=== PATIENT | male | born 1935 | race Caucasian/White ===

== ENCOUNTER 2019-11-13 08:19 | Observation (INO) ==
[2019-11-13] MEDS ORDERED: Aspirin 81 MG TAB.CHEW PO ONE (08:24)
[2019-11-13 08:51] LABS: Basophils % 0.3 %; Hematocrit 41.2 % (37.5-50.1); Hemoglobin 14.4 g/dL (12.9-16.9); Immature Granulocytes % 0.4 % (0-4); Lymphocytes # 0.5 K/mcL (0.6-4.6); Lymphocytes % 4.8 %; Mean Corpuscular Volume 88.6 fL (83.0-100.0); Mean Platelet Volume 10.1 fL (9.4-12.4); Monocytes # 1.1 K/mcL (0.0-1.3); Monocytes % 10.4 %; Neutrophils # 8.6 K/mcL (1.6-8.9); Platelet Count 141 K/mcL (140-400); Red Blood Count 4.65 M/mcL (4.19-5.50); Red Cell Distribution Width 11.9 % (11.5-14.5); Segmented Neutrophils % 84.1 %; White Blood Count 10.2 K/mcL (4.3-11.1)
[2019-11-13 08:56] LABS: INR 1.1
[2019-11-13 08:59] LABS: Activated Partial Thrombo Time 28.6 Seconds (26.0-36.0)
[2019-11-13] MEDS ORDERED: *HR* Heparin 5,000 UNIT/ML VIAL IVP PRN ×2 (09:04)
[2019-11-13] MEDS ORDERED: *HR* Heparin 5,000 UNIT/ML VIAL IVP ONE (09:04)
[2019-11-13 09:09] LABS: Albumin 4.2 g/dL (3.5-5.7); Albumin/Globulin Ratio 1.8 (1.1-2.2); Bilirubin,Direct 0.2 mg/dL (0.0-0.2); Bilirubin,Indirect 0.8 mg/dL (0.0-1.0); D-Dimer 315 ng/mLFEU (0-500); Globulin 2.3 g/dL (2.4-3.5); Total Protein 6.5 g/dL (6.4-8.9)
[2019-11-13 09:10] LABS: BUN/Creatinine Ratio 23 (6-26); Blood Urea Nitrogen 24 mg/dL (8-23); Calcium 9.3 mg/dL (8.6-10.3); Carbon Dioxide 28 mEq/L (23-29); Chloride 100 mEq/L (98-107); Glucose 107 mg/dL (70-105); Osmolality,Calculated 285 (280-300); Potassium 3.6 mEq/L (3.5-5.1); Sodium 135 mEq/L (136-145); eGFR For African Americans > 60 (> 60); eGFR For Non-African Americans > 60 (> 60)
[2019-11-13 09:11] LABS: Troponin I < 0.03 ng/mL (< 0.04)
[2019-11-13] MEDS ORDERED: Heparin 25,000 UNIT/250 ML D5W 25,000 UNIT/250 ML IV.SOLN IVC SCH (09:15)
[2019-11-13 09:17] LABS: Heparin anti-factor XA UFH < 0.04 IU/mL (0.30-0.70)
[2019-11-13] MEDS ORDERED: Ondansetron 4 MG/2 ML VIAL IVP PRN (10:25)
[2019-11-13] MEDS ORDERED: *HR* LORazepam 1 MG TABLET PO PRN (10:27)
[2019-11-13 11:11] LABS: Magnesium 1.8 mg/dL (1.6-2.6)
[2019-11-13 11:12] LABS: Troponin I < 0.03 ng/mL (< 0.04)
[2019-11-13] MEDS: Nitroglycerin 0.4 MG TAB.SUBL SL PRN ×2 (17:00→17:19)
[2019-11-13] MEDS: Potassium Chloride Elixir 20 MEQ/15 ML UDC PO SCH (20:33)
[2019-11-14 01:24] LABS: Basophils % 0.3 %; Red Cell Distribution Width 11.8 % (11.5-14.5)
[2019-11-14 01:25] LABS: Hematocrit 39.8 % (37.5-50.1); Immature Granulocytes % 0.2 % (0-4); Immature Platelets 3.3 % (1.1-6.1); Lymphocytes # 1.1 K/mcL (0.6-4.6); Lymphocytes % 11.2 %; Mean Corpuscular HGB Conc 35.2 g/dL (31.6-35.5); Mean Corpuscular Hemoglobin 31.7 pg (28.0-33.3); Mean Corpuscular Volume 90.2 fL (83.0-100.0); Mean Platelet Volume 10.1 fL (9.4-12.4); Monocytes # 1.2 K/mcL (0.0-1.3); Monocytes % 12.4 %; Neutrophils # 7.5 K/mcL (1.6-8.9); Platelet Count 141 K/mcL (140-400); Red Blood Count 4.41 M/mcL (4.19-5.50); Segmented Neutrophils % 75.9 %; White Blood Count 9.9 K/mcL (4.3-11.1)
[2019-11-14 01:27] LABS: INR 1.3; Prothrombin Time 14.2 Seconds (9.4-12.1)
[2019-11-14 01:41] LABS: Platelet Estimate Normal (Normal)
[2019-11-14 01:47] LABS: Alanine Aminotransferase 12 Units/L (7-52); Albumin 3.8 g/dL (3.5-5.7); Albumin/Globulin Ratio 1.5 (1.1-2.2); Alkaline Phosphatase 47 Units/L (34-104); Aspartate Amino Transferase 18 Units/L (13-39); BUN/Creatinine Ratio 23 (6-26); Bilirubin,Total 1.1 mg/dL (0.3-1.0); Blood Urea Nitrogen 25 mg/dL (8-23); Carbon Dioxide 28 mEq/L (23-29); Chloride 98 mEq/L (98-107); Globulin 2.5 g/dL (2.4-3.5); Glucose 108 mg/dL (70-105); Magnesium 1.8 mg/dL (1.6-2.6); Osmolality,Calculated 281 (280-300); Potassium 3.9 mEq/L (3.5-5.1); Sodium 133 mEq/L (136-145); Total Protein 6.3 g/dL (6.4-8.9); eGFR For African Americans > 60 (> 60); eGFR For Non-African Americans > 60 (> 60)
[2019-11-14] MEDS ORDERED: Regadenoson 0.4 MG/5 ML SYRINGE IVP ONE (08:21)
[2019-11-14] MEDS ORDERED: Aspirin 81 MG TAB.CHEW PO SCH (09:00)
[2019-11-14] MEDS ORDERED: atenoloL 50 MG TABLET PO SCH (09:00)
[2019-11-14] MEDS ORDERED: Isosorbide MONOnitrate (24 HR) 30 MG TAB.ER.24H PO SCH (09:00)
[2019-11-14] MEDS ORDERED: Magnesium Oxide 400 MG TABLET PO SCH (09:00)
[2019-11-14] MEDS ORDERED: Heparin 1,000 UNITS/500 mL 500 ML ONE (12:02)
[2019-11-14] MEDS ORDERED: Nitroglycerin 1,000 MCG/10 ML VIAL IV ONE (12:02)
[2019-11-14] MEDS ORDERED: *HR* Heparin 10,000 UNIT/10 ML VIAL ONE (12:02)
[2019-11-14] MEDS ORDERED: 0.9 % Sodium Chloride 1,000 ML ONE (12:02)
[2019-11-14] MEDS ORDERED: ISOVUE-370 200 ML INFUS..BTL ONE (12:02)
[2019-11-14] MEDS ORDERED: *HR* Midazolam HCl 2 MG/2 ML VIAL ONE (12:29)
[2019-11-14] MEDS ORDERED: *HR* FentaNYL (PF) 100 MCG/2 ML VIAL ONE (12:39)
[2019-11-14] MEDS ORDERED: Acetaminophen 325 MG TABLET PO PRN (13:18)
[2019-11-14] MEDS: Potassium Chloride Elixir 20 MEQ/15 ML UDC PO SCH (14:08)
[2019-11-14 15:38] VITALS: BP 139/76
[2019-11-15] MEDS ORDERED: Isosorbide MONOnitrate (24 HR) 60 MG TAB.ER.24H PO SCH (09:00)
== END 2019-11-14 16:14 | disposition home or self-care (01) ==
LOC: EMEROOARM 08:19 → 2ANU 08:19 → SUATTDRO 10:00 → 2ANU 10:18
PROVIDERS: ADMIT Family Medicine; ATTEND Student in an Organized Health Care Education/Training Program

== ENCOUNTER 2022-02-10 10:43 | Inpatient (IN) ==
[2022-02-10 12:18] LABS: Mean Platelet Volume 10.5 fL (9.4-12.4); Red Cell Distribution Width 12.3 % (11.5-14.5)
[2022-02-10 12:20] LABS: Basophils # 0.1 K/mcL (0.0-0.2); Basophils % 0.7 %; Eosinophils % 0.1 %; Hematocrit 42.2 % (37.5-50.1); Hemoglobin 14.3 g/dL (12.9-16.9); Immature Granulocytes % 0.3 % (0-4); Immature Platelets 5.2 % (1.1-6.1); Lymphocytes # 0.9 K/mcL (0.6-4.6); Lymphocytes % 12.9 %; Mean Corpuscular HGB Conc 33.9 g/dL (31.6-35.5); Mean Corpuscular Hemoglobin 30.7 pg (28.0-33.3); Mean Corpuscular Volume 90.6 fL (83.0-100.0); Monocytes # 0.8 K/mcL (0.0-1.3); Monocytes % 12.2 %; Platelet Count 145 K/mcL (140-400); Red Blood Count 4.66 M/mcL (4.19-5.50); Segmented Neutrophils % 73.8 %; White Blood Count 6.8 K/mcL (4.3-11.1)
[2022-02-10 12:25] LABS: INR 1.1; Prothrombin Time 12.6 Seconds (9.4-12.1)
[2022-02-10 12:28] LABS: Activated Partial Thrombo Time 29.2 Seconds (26.0-36.0)
[2022-02-10 12:40] LABS: BUN/Creatinine Ratio 22 (6-26); Blood Urea Nitrogen 24 mg/dL (8-23); Calcium 9.3 mg/dL (8.6-10.3); Carbon Dioxide 31 mEq/L (23-29); Chloride 103 mEq/L (98-107); Glucose 107 mg/dL (70-105); Osmolality,Calculated 291 (280-300); Potassium 3.8 mEq/L (3.5-5.1); Sodium 138 mEq/L (136-145); Troponin I < 0.03 ng/mL (< 0.04); eGFR For African Americans > 60 (> 60); eGFR For Non-African Americans > 60 (> 60)
[2022-02-10] MEDS ORDERED: Naloxone 0.4 MG/ML INJ IVP PRN (16:40)
[2022-02-10] MEDS ORDERED: Perflutren Lipid Microsphere 1.3 ML in 0.9 % Sodium Chloride 8.7 ML IVP PRN (17:10)
[2022-02-10] MEDS: *HR* LORazepam 1 MG TABLET PO PRN (21:40)
[2022-02-11] MEDS ORDERED: *HR* Heparin 5,000 UNIT/ML VIAL SQ SCH (06:00)
[2022-02-11] MEDS ORDERED: Regadenoson 0.4 MG/5 ML SYRINGE IVP ONE (06:14)
[2022-02-11] MEDS ORDERED: Isosorbide MONOnitrate (24 HR) 60 MG TAB.ER.24H PO SCH (09:00)
[2022-02-11 11:19] LABS: Hemoglobin 14.1 g/dL (12.9-16.9); Immature Granulocytes % 0.2 % (0-4); Lymphocytes % 9.7 %
[2022-02-11 11:21] LABS: Basophils % 0.4 %; Eosinophils % 0.1 %; Immature Platelets 4.5 % (1.1-6.1); Lymphocytes # 0.9 K/mcL (0.6-4.6); Mean Corpuscular HGB Conc 34.4 g/dL (31.6-35.5); Mean Corpuscular Hemoglobin 30.7 pg (28.0-33.3); Mean Corpuscular Volume 89.3 fL (83.0-100.0); Mean Platelet Volume 10.6 fL (9.4-12.4); Monocytes # 0.7 K/mcL (0.0-1.3); Monocytes % 7.4 %; Neutrophils # 7.3 K/mcL (1.6-8.9); Platelet Count 129 K/mcL (140-400); Red Blood Count 4.59 M/mcL (4.19-5.50); Red Cell Distribution Width 12.2 % (11.5-14.5); Segmented Neutrophils % 82.2 %; White Blood Count 8.9 K/mcL (4.3-11.1)
[2022-02-11 11:37] LABS: Blood Urea Nitrogen 20 mg/dL (8-23); Calcium 8.8 mg/dL (8.6-10.3); Carbon Dioxide 28 mEq/L (23-29); Chloride 103 mEq/L (98-107); Chol/HDL Ratio 2.7 (0-4.9); Cholesterol 126 mg/dL (< 200); Glucose 102 mg/dL (70-105); HDL Cholesterol 46 mg/dL (40-59); LDL Cholesterol,Calculated 64 mg/dL (< 100); Osmolality,Calculated 285 (280-300); Potassium 3.8 mEq/L (3.5-5.1); Sodium 136 mEq/L (136-145); Triglycerides 82 mg/dL (< 150)
[2022-02-11 12:26] LABS: BUN/Creatinine Ratio 18 (6-26); eGFR For African Americans > 60 (> 60); eGFR For Non-African Americans > 60 (> 60)
[2022-02-11 12:28] LABS: Estimated Average Glucose 114 mg/dl; Hemoglobin A1C 5.6 %
[2022-02-11] MEDS: Aspirin Enteric Coated 81 MG Tablet PO SCH (15:27)
[2022-02-11] MEDS: Nitroglycerin 0.4 MG TAB.SUBL SL PRN ×3 (15:46→15:56)
[2022-02-11] MEDS ORDERED: *HR* Heparin 5,000 UNIT/ML VIAL IVP PRN ×2 (16:40)
[2022-02-11] MEDS ORDERED: Heparin 25,000UNIT/250ML 1/2NS 25,000 UNIT/250 ML IV.SOLN IVC SCH (16:45)
[2022-02-11] MEDS: Metoprolol XL (24 HR) Succ 25 MG TAB.ER.24H PO SCH (21:28)
[2022-02-11] MEDS: *HR* LORazepam 1 MG TABLET PO PRN (21:28)
[2022-02-12] MEDS: Metoprolol XL (24 HR) Succ 25 MG TAB.ER.24H PO SCH ×2 (08:55→19:58)
[2022-02-12] MEDS: Aspirin Enteric Coated 81 MG Tablet PO SCH (08:55)
[2022-02-12] MEDS ORDERED: Heparin 1,000 UNITS/500 mL 500 ML ONE (10:10)
[2022-02-12] MEDS ORDERED: Iopamidol - 370 200 ML INFUS..BTL ONE (10:10)
[2022-02-12] MEDS ORDERED: Nitroglycerin 1,000 MCG/5 ML VIAL IV ONE (10:10)
[2022-02-12] MEDS ORDERED: 0.9 % Sodium Chloride 1,000 ML ONE ×2 (10:10→10:16)
[2022-02-12] MEDS ORDERED: *HR* Heparin 10,000 UNIT/10 ML VIAL ONE (10:10)
[2022-02-12] MEDS ORDERED: *HR* FentaNYL (PF) 100 MCG/2 ML VIAL ONE (10:15)
[2022-02-12] MEDS ORDERED: *HR* Midazolam HCl 2 MG/2 ML VIAL ONE (10:16)
[2022-02-12] MEDS ORDERED: *HR* Atropine Sulfate 1 MG/10 ML SYRINGE ONE (11:02)
[2022-02-12] MEDS ORDERED: Methyl Salicylate/Menthol 85 APPL/85 GM TUBE TP PRN (15:47)
[2022-02-12] MEDS: *HR* Heparin 5,000 UNIT/ML VIAL SQ SCH (17:14)
[2022-02-12] MEDS: *HR* LORazepam 1 MG TABLET PO PRN (22:58)
[2022-02-13] MEDS: Ibuprofen 400 MG TABLET PO PRN ×2 (01:00→08:58)
[2022-02-13] MEDS ORDERED: Ketorolac 30 MG/ML VIAL IVP ONE (01:23)
[2022-02-13 03:51] LABS: Hematocrit 37.9 % (37.5-50.1); Hemoglobin 13.1 g/dL (12.9-16.9)
[2022-02-13 04:16] LABS: BUN/Creatinine Ratio 17 (6-26); Blood Urea Nitrogen 19 mg/dL (8-23); Troponin I 0.05 ng/mL (< 0.04); eGFR For African Americans > 60 (> 60); eGFR For Non-African Americans > 60 (> 60)
[2022-02-13 07:08] VITALS: BP 108/51; PULSE 72; TEMP 97.7; O2SAT 100
[2022-02-13] MEDS: *HR* Heparin 5,000 UNIT/ML VIAL SQ SCH (08:49)
[2022-02-13] MEDS: Aspirin Enteric Coated 81 MG Tablet PO SCH (08:58)
[2022-02-13] MEDS: Metoprolol XL (24 HR) Succ 25 MG TAB.ER.24H PO SCH (08:59)
== END 2022-02-13 11:00 | disposition home or self-care (01) | DRG 247 ==
LOC: 2NENU 10:43 → EMEROOARM 10:43 → SUATTDRO 15:16 → 2NENU 16:35 → SUATTDRO 02-12 13:15
PROVIDERS: ADMIT Internal Medicine; ATTEND Internal Medicine

== ENCOUNTER 2022-03-03 16:47 | Observation (INO) ==
[2022-03-03 17:55] LABS: BUN/Creatinine Ratio 15 (6-26); Blood Urea Nitrogen 15 mg/dL (8-23); Calcium 9.1 mg/dL (8.6-10.3); Carbon Dioxide 30 mEq/L (23-29); Chloride 99 mEq/L (98-107); Glucose 104 mg/dL (70-105); Osmolality,Calculated 283 (280-300); Potassium 3.9 mEq/L (3.5-5.1); Sodium 136 mEq/L (136-145); Troponin I < 0.03 ng/mL (< 0.04); eGFR For African Americans > 60 (> 60); eGFR For Non-African Americans > 60 (> 60)
[2022-03-03 17:58] LABS: Basophils # 0.1 K/mcL (0.0-0.2); Basophils % 0.8 %; Hemoglobin 12.8 g/dL (12.9-16.9); Immature Granulocytes % 0.2 % (0-4); Lymphocytes # 0.8 K/mcL (0.6-4.6); Lymphocytes % 12.6 %; Mean Corpuscular HGB Conc 34.6 g/dL (31.6-35.5); Mean Corpuscular Hemoglobin 30.9 pg (28.0-33.3); Mean Corpuscular Volume 89.4 fL (83.0-100.0); Mean Platelet Volume 10.7 fL (9.4-12.4); Monocytes # 0.8 K/mcL (0.0-1.3); Monocytes % 12.1 %; Neutrophils # 4.7 K/mcL (1.6-8.9); Platelet Count 146 K/mcL (140-400); Red Blood Count 4.14 M/mcL (4.19-5.50); Red Cell Distribution Width 12.4 % (11.5-14.5); Segmented Neutrophils % 74.3 %; White Blood Count 6.3 K/mcL (4.3-11.1)
[2022-03-03 18:43] LABS: Magnesium 1.8 mg/dL (1.6-2.6)
[2022-03-03] MEDS ORDERED: Acetaminophen 325 MG TABLET PO PRN (23:08)
[2022-03-03] MEDS ORDERED: Naloxone 0.4 MG/ML INJ IVP PRN (23:08)
[2022-03-03] MEDS ORDERED: Ondansetron 4 MG/2 ML VIAL IVP PRN (23:08)
[2022-03-04] MEDS: Famotidine 20 MG TABLET PO SCH ×3 (00:22→21:15)
[2022-03-04] MEDS: Sucralfate 1 GM TABLET PO SCH ×5 (00:22→21:15)
[2022-03-04] MEDS: *HR* LORazepam 1 MG TABLET PO PRN ×2 (00:23→21:15)
[2022-03-04] MEDS: Metoprolol XL (24 HR) Succ 25 MG TAB.ER.24H PO SCH ×3 (00:23→21:15)
[2022-03-04 03:49] LABS: Hemoglobin 12.1 g/dL (12.9-16.9); Mean Platelet Volume 10.4 fL (9.4-12.4)
[2022-03-04 03:51] LABS: Hematocrit 34.8 % (37.5-50.1); Mean Corpuscular HGB Conc 34.8 g/dL (31.6-35.5); Mean Corpuscular Hemoglobin 30.7 pg (28.0-33.3); Mean Corpuscular Volume 88.3 fL (83.0-100.0); Red Blood Count 3.94 M/mcL (4.19-5.50); Red Cell Distribution Width 12.2 % (11.5-14.5); White Blood Count 6.2 K/mcL (4.3-11.1)
[2022-03-04 03:53] LABS: INR 1.2; Prothrombin Time 12.9 Seconds (9.4-12.1)
[2022-03-04 03:56] LABS: Activated Partial Thrombo Time 28.1 Seconds (26.0-36.0)
[2022-03-04 04:05] LABS: BUN/Creatinine Ratio 14 (6-26); Blood Urea Nitrogen 13 mg/dL (8-23); Calcium 8.8 mg/dL (8.6-10.3); Carbon Dioxide 30 mEq/L (23-29); Chloride 103 mEq/L (98-107); Chol/HDL Ratio 2.8 (0-4.9); Cholesterol 125 mg/dL (< 200); Glucose 99 mg/dL (70-105); HDL Cholesterol 45 mg/dL (40-59); LDL Cholesterol,Calculated 60 mg/dL (< 100); Osmolality,Calculated 284 (280-300); Potassium 3.5 mEq/L (3.5-5.1); Sodium 137 mEq/L (136-145); Triglycerides 102 mg/dL (< 150); eGFR For African Americans > 60 (> 60); eGFR For Non-African Americans > 60 (> 60)
[2022-03-04 04:17] LABS: Thyroid Stimulating Hormone 2.913 mcIU/mL (0.340-5.600)
[2022-03-04 04:30] LABS: Folate > 22.3 ng/mL (3.0-16.0); Vitamin B12 428 pg/mL (250-1100)
[2022-03-04 04:33] LABS: Estimated Average Glucose 120 mg/dl; Hemoglobin A1C 5.8 %
[2022-03-04] MEDS: *HR* Heparin 5,000 UNIT/ML VIAL SQ SCH ×2 (05:21→15:46)
[2022-03-04 08:55] LABS: Bilirubin,Urine Negative (Negative); Blood,Urine Negative (Negative); Clarity,Urine Clear (Clear); Color,Urine Light-Yellow (Yellow); Glucose,Urine (UA) Normal (Normal); Ketones,Urine Negative (Negative); Leukocyte Esterase,Urine Negative (Negative); Nitrite,Urine Negative (Negative); Protein,Urine Negative (Neg-Trace); Specific Gravity,Urine 1.013 (1.010-1.025); Urobilinogen,Urine Normal (Normal)
[2022-03-04] MEDS: Aspirin Enteric Coated 81 MG Tablet PO SCH (09:15)
[2022-03-04] MEDS: Magnesium Oxide 400 MG TABLET PO SCH (09:17)
[2022-03-04] MEDS: Isosorbide MONOnitrate (24 HR) 60 MG TAB.ER.24H PO SCH (09:17)
[2022-03-04] MEDS: Multivit/Ca/Min/Fe/FA 1 TAB TABLET PO SCH (09:17)
[2022-03-04] MEDS: Potassium Chloride Elixir 20 MEQ/15 ML UDC PO SCH ×2 (10:00→21:20)
[2022-03-04] MEDS ORDERED: Metoprolol XL (24 HR) Succ 25 MG TAB.ER.24H PO ONE (11:28)
[2022-03-04] MEDS: Menthol 1 EACH LOZENGE PO PRN ×2 (12:58→15:49)
[2022-03-04 17:09] LABS: Influenza A PCR Negative (Negative); Influenza B PCR Negative (Negative); Resp. Syncytial Virus PCR Negative (Negative)
[2022-03-04 17:10] LABS: SARS-CoV-2 by PCR (In House) Negative (Negative)
[2022-03-04] MEDS ORDERED: Chloraseptic Spray 177 ML BOTTLE MM PRN (20:12)
[2022-03-05 03:24] LABS: Hemoglobin 12.3 g/dL (12.9-16.9)
[2022-03-05 03:26] LABS: Hematocrit 35.3 % (37.5-50.1); Immature Platelets 5.9 % (1.1-6.1); Mean Corpuscular HGB Conc 34.8 g/dL (31.6-35.5); Mean Corpuscular Hemoglobin 30.9 pg (28.0-33.3); Mean Corpuscular Volume 88.7 fL (83.0-100.0); Mean Platelet Volume 10.9 fL (9.4-12.4); Red Blood Count 3.98 M/mcL (4.19-5.50); Red Cell Distribution Width 12.1 % (11.5-14.5)
[2022-03-05 03:48] LABS: BUN/Creatinine Ratio 17 (6-26); Blood Urea Nitrogen 17 mg/dL (8-23); Calcium 8.5 mg/dL (8.6-10.3); Carbon Dioxide 29 mEq/L (23-29); Chloride 99 mEq/L (98-107); Glucose 93 mg/dL (70-105); Osmolality,Calculated 279 (280-300); Potassium 3.3 mEq/L (3.5-5.1); Sodium 134 mEq/L (136-145); eGFR For African Americans > 60 (> 60); eGFR For Non-African Americans > 60 (> 60)
[2022-03-05] MEDS: *HR* Heparin 5,000 UNIT/ML VIAL SQ SCH (06:21)
[2022-03-05] MEDS: Potassium Chloride Elixir 20 MEQ/15 ML UDC PO SCH (08:58)
[2022-03-05] MEDS: Isosorbide MONOnitrate (24 HR) 60 MG TAB.ER.24H PO SCH (09:00)
[2022-03-05] MEDS: Multivit/Ca/Min/Fe/FA 1 TAB TABLET PO SCH (09:00)
[2022-03-05] MEDS: Magnesium Oxide 400 MG TABLET PO SCH (09:00)
[2022-03-05] MEDS: Sucralfate 1 GM TABLET PO SCH (09:00)
[2022-03-05] MEDS: Famotidine 20 MG TABLET PO SCH (09:00)
[2022-03-05] MEDS: Aspirin Enteric Coated 81 MG Tablet PO SCH (09:00)
[2022-03-05] MEDS: Metoprolol XL (24 HR) Succ 25 MG TAB.ER.24H PO SCH (09:00)
[2022-03-05 10:27] VITALS: BP 120/68; PULSE 67; TEMP 97.6; O2SAT 99
== END 2022-03-05 15:04 | disposition home or self-care (01) ==
LOC: EMEROOARM 16:47 → 3BNU 16:47 → SUATTDRO 22:27 → 3BNU 22:50
PROVIDERS: ADMIT Internal Medicine; ATTEND Registered Nurse